=== PATIENT | female | born 1980 | race Two or more races ===

== ENCOUNTER 2016-11-12 10:40 | Emergency (ER) | payer SELFPAY ==
[~2016-11-12] VITALS: Ht 165.1 cm; Wt 77.0 kg
[2016-11-12 10:48] VITALS: BP 130/86; PULSE 72; RESP 16; TEMP 98.8; O2SAT 97
[2016-11-12] MEDS ORDERED: SILVER SULFADIAZINE 1% CR 50 GM JAR TOPICAL ONE (11:30)
[2016-11-12] MEDS ORDERED: IBUP800T23 PO (11:31)
[2016-11-12] MEDS ORDERED: SILV1CRE20 TOPICAL (11:31)
[2016-11-12] MEDS ORDERED: TRAM50TA PO (11:31)
--- NOTE | 2016-11-12 11:32 | PD ---
HPI Chief Complaint: Burn Time Seen by Provider: 11:23 Travel History International Travel<30 days: No Contact w/Intl Traveler<30days: No Traveled to known affect area: No History of Present Illness HPI Patient is a 36-year-old female who presents emergency department for evaluation of a left foot burn. The burn occurred approximately 6 days ago at home, patient states that she dropped hot oil on her foot. Since that time she has been applying lavender oil and medical any that she obtained over-the- counter. She reports that it feels tight and sore. She states it's painful to bend and flex her foot. Denies any fever, chills, nausea, vomiting, chest pain , shortness of breath. She denies any injury as far as dropping an object other than a boil on her foot. PFSH Past Medical History Medical History: Denies Significant Hx Diminished Hearing: No Tetanus Vaccination: Unknown ?: Not LMP: 10/18/16 Past Surgical History Section: Yes Social History Alcohol Use: No Tobacco Use: No Substance Use: No Allergies-Medications (Allergen,Severity, Reaction): Coded Allergies: Penicillin (Verified Allergy, Severe, sob, 11/12/16) Reported Meds & Prescriptions Reported Meds & Active Scripts Active No Active Prescriptions or Reported Medications Review of Systems Except as stated in HPI: all other systems reviewed are Neg Musculoskeletal: Positive: Pain Skin: Positive Other (burn to left foot) Physical Exam Narrative GENERAL: Well-nourished, well-developed patient. SKIN: Warm and dry. There is a second-degree burn noted to the anterior left foot across the metatarsals. No induration or erythema noted. No exudates or drainage noted. HEAD: Normocephalic. EYES: No scleral icterus. No injection or drainage. NECK: Supple, trachea midline. No JVD or lymphadenopathy. CARDIOVASCULAR: Regular rate and rhythm without murmurs, gallops, or rubs. Positive pedal pulses, brisk less than 3 second capillary refill. RESPIRATORY: Breath sounds equal bilaterally. No accessory muscle use. GASTROINTESTINAL: Abdomen soft, non-tender, nondistended. MUSCULOSKELETAL: No cyanosis, or edema. Decreased range of motion with flexion and extension of left ankle. 5/5 muscle strength in bilateral lower extremities. BACK: Nontender without obvious deformity. No CVA tenderness. Data Data Last Documented VS Vital Signs Date Time Temp Pulse Resp B/P Pulse Ox O2 Delivery O2 Flow Rate FiO2 11/12/16 10:48 98.8 72 16 130/86 97 MDM Medical Decision Making Medical Screen Exam Complete: Yes Emergency Medical Condition: Yes Interpretation(s) Vital Signs Date Time Temp Pulse Resp B/P Pulse Ox O2 Delivery O2 Flow Rate FiO2 11/12/16 10:48 98.8 72 16 130/86 97 Differential Diagnosis Cellulitis versus first-degree burn versus second degree burn versus other Narrative Course Patient is a 36-year-old female who presents emergency department for evaluation of a burn to her left foot that occurred 6 days ago. Patient has been treating it with movf-qua-byoiiln medicine any and lavender oil rate she presents today due to the pain and tightness. Wound does not appear infected, it is healing well. However patient would benefit from Silvadene cream and wound care education. Wound care ordered, Silvadene cream ordered. Patient is neurovascularly intact. Patient is encouraged to apply cream twice a day and cover with nonadherent dressing. She is encouraged follow-up with her primary care provider return to emergency department for any new or worsening symptoms. Patient was educated on signs and symptoms of infection. Patient verbalizes understanding of discharge instructions as well as need for follow-up. Patient is stable for discharge. Diagnosis Primary Impression: Burn of second degree of left foot, initial encounter Referrals: Primary Care Physician Patient Instructions: General Instructions, Second Degree Burn (ED), Silver Sulfadiazine (On the skin) Departure Forms: Tests/Procedures Additional Instructions: Apply Silvadene cream twice daily and apply a nonadherent dressing Follow-up with your primary doctor Return to emergency department for any new or worsening symptoms or signs of infection. Med/Other Pt SpecificInfo: Prescription(s) given Scripts Tramadol 50 Mg Tab50 Mg PO Q6H PRN (PAIN) #10 TAB Ref 0 Prov:Paul Barrett MD 11/12/16 Ibuprofen 800 Mg Xwd461 Mg PO Q6HR PRN (PAIN) 10 Days Ref 0 Prov:Crystal May 11/12/16 Silver Sulfadiazine Topical (Silvadene Topical)1 % Cream1 Applic TOPICAL BID 7 Days Ref 0 Prov:Crystal May 11/12/16 Disposition: 01 DISCHARGE HOME Condition: Stable Crystal May Nov 12, 2016 11:32
== END 2016-11-12 12:00 | disposition home or self-care (01) ==
LOC: PHEFT 10:40
DX: T25.222A Burn of second degree of left foot, initial encounter (principal); X10.2XXA Contact with fats and cooking oils, initial encounter; Y99.8 Other external cause status
CPT/HCPCS: 16020